=== PATIENT | female | born 1965 | race Caucasian/White ===

== ENCOUNTER → 2020-06-26 13:03 | Outpatient (CLI) | payer OTHER, SELFPAY ==
--- NOTE | ~2020-06-26 | XR_ITS ---
EXAMINATION: XR lumbar spine 2-3V EXAM DATE: 06/26/2020 13:40 INDICATION: Bilateral low back pain. TECHNIQUE: Lumber spine frontal, lateral, lateral L5-S1 projections for interpretation. There is no prior study for comparison. FINDINGS: There is mild to moderate lumbar facet arthropathy. Vertebral body and disc heights are we ll-maintained. The vertebral bodies are aligned in the AP dimension. 3 pelvic clips. There are cholec ystectomy clips. Moderate amount of colonic stool. IMPRESSION: 1. Mild to moderate lumbar facet arthropathy. 2. Moderate colonic stool. Reviewed, dictated and finalized at location A. T OR NUT PICKER
--- NOTE | ~2020-06-26 | DEXA_ITS ---
Bone Density Report Name: Tonja Isidro Age: 54 Sex: Female Ethnicity: White Date of : 1965 Indication: postmenopausal; screening for osteoporosis; height loss; hysterectomy; Referring Provider: James, Betzy Lang Study: Bone densitometry was performed. Exam Date: June 26, 2020 Accession number: [id number] Bone Density: Region BMD T-score Z-score Classification AP Spine (L1-L4) 0.956 -0.8 0.2 Normal Femoral Neck (Left) 0.775 -0.7 0.4 Normal Total Hip (Left) 0.901 -0.3 0.3 Normal Femoral Neck (Right) 0.771 -0.7 0.3 Normal Total Hip (Right) 0.895 -0.4 0.3 Normal Total Hip Mean 0.898 -0.4 0.3 Normal World Health Organization criteria for BMD impression classify patients as: Normal (T-score at or above -1.0), Osteopenia (T-score between -1.0 and -2.5), or Osteoporosis (T-score at or below -2.5). 10-year Fracture Risk: FRAX not reported because: All T-scores for Spine Total, Hip Total, Femoral Neck at or above -1.0 Treated for osteoporosis Clinical Information Provided by Patient: Is being treated for osteoporosis Has used the following medications: Evista (i.e. raloxifene), Vitamin D, Calcium Has the following medical conditions: Hysterectomy Patient maximum height was 65.5 Menopause Age: 25 No regular weight bearing exercise Does not regularly consume dairy products Drinks caffeinated beverages Onset of menses at age 11 Number of children 2 Impression: The patient has normal bone mass. Discussion: It is important to ask patients whether they are taking their medications and to encourage continued and appropriate compliance with their osteoporosis therapies to reduce fracture risk. It is also important to review their risk factors and encourage appropriate calcium and vitamin D intakes, exercise, fall prevention and other lifestyle measures. Follow-Up: Consider a repeat BMD and Vertebral Fracture Assessment (VFA) exam in 2 years or sooner if medically necessary, to reassess this patient's status. Reported by: LUPE on 06/26/2020 1:52:00 PM. Reviewed, dictated and finalized at location AGaby CARSON
--- NOTE | ~2020-06-26 | XR_ITS ---
EXAMINATION: XR hand LT 2V, XR hand RT 2V DATE: 06/26/2020 13:40 INDICATION: Bilateral finger arthralgia and hand swelling. TECHNIQUE: 1. Posteroanterior and lateral views of the left hand were obtained. 2. Posteroanterior and lateral views of the right hand were obtained. COMPARISON: None. FINDINGS: Normal alignment at both hands. No fracture. Joint spaces are normal with no erosions. Bone island at the right ulnar styloid process. Soft tissues are unremarkable. IMPRESSION: 1. Incidental bone island at the right ulnar styloid process. Otherwise normal bilateral hand radiogr aphs. Reviewed, dictated and finalized at location B. D CARE DEVELOPMENT SPECIALIST IMPRESSION: 1. Incidental bone island at the right ulnar styloid process. Otherwise normal bilateral hand radiographs.
--- NOTE | ~2020-06-26 | MM_ITS ---
EXAMINATION: MM screening sarita BI w shaneka HISTORY: Screening TECHNIQUE: Craniocaudal and mediolateral oblique 3-D tomosynthesis images were obtained and synthetic 2-D images were generated. CAD analysis was submitted and interpreted. COMPARISON: Comparison to multiple prior studies sequentially, with oldest reviewed study dated 10/04. BREAST PARENCHYMAL COMPOSITION: The breasts are heterogeneously dense, which may obscure small masses . FINDINGS: Left breast asymmetries are stable. There is no evidence of suspicious mass, calcification, or architectural distortion to suggest malignancy in either breast. There has been no suspicious int erval change. IMPRESSION: 1. No mammographic evidence of malignancy. 2. Recommend routine screening mammography in one year. BI-RADS Category 1: Negative Reviewed, dictated and finalized at location A. HER HEARING IMPAIRED
== END ==
PROVIDERS: Visit Provider Physician Assistant
DX: M25.541 Pain in joints of right hand (principal); M25.542 Pain in joints of left hand; Z78.0 Asymptomatic menopausal state; Z12.31 Encounter for screening mammogram for malignant neoplasm of breast
CPT/HCPCS: 72100; 73120; 77063; 77067; 77080

== ENCOUNTER → 2022-01-13 12:03 | Outpatient (CLI) | payer OTHER, SELFPAY ==
--- NOTE | ~2022-01-13 | XR_ITS ---
EXAMINATION: XR chest 2V 01/13/2022 12:17 INDICATION: Chest pressure for 6 weeks PROCEDURE: 2 view chest COMPARISON: 12/01/2010 FINDINGS: The lungs are clear. The cardiomediastinal silhouette is within normal limits. There are no pleural effusions. There is no pneumothorax suspected. The lungs are hyperinflated which is cons istent with, but not diagnostic of chronic obstructive pulmonary disease. There are calcified granulo mas in the lower lungs. IMPRESSION: 1: NO ACUTE CARDIOPULMONARY DISEASE. Reviewed, dictated and finalized at location A.
== END ==
PROVIDERS: PCP Family Medicine; Visit Provider Family Medicine
DX: R07.89 Other chest pain (principal)
CPT/HCPCS: 71046